=== PATIENT | female | born 1980 | race American Indian/Alaskan Native ===

== ENCOUNTER 2020-06-11 12:07 | Emergency (ER) | payer SELFPAY ==
[2020-06-11 12:14] VITALS: BP 127/76
--- NOTE | 2020-06-11 12:19 | Event Note ---
ED Screening Note Date of service: 06/11/20 Time: 12:17 ED Screening Note: 40-year-old female presents to the emergency room for 1 month of left lower quadrant pain that has worsened in the last 2 days. She denies any nausea no vomiting no constipation or diarrhea. Recent change from Metformin to insulin 70/30. Last menstrual period unaware she currently has Nexplanon. This initial assessment/diagnostic orders/clinical plan/treatment(s) is/are subject to change based on patients health status, clinical progression and re- assessment by fellow clinical providers in the ED. Further treatment and workup at subsequent clinical providers discretion. Patient/guardian urged not to elope from the ED as their condition may be serious if not clinically assessed and managed. Initial orders include:
[2020-06-11 13:02] LABS: Bacteria,Urine 1+ /HPF (Negative); Bilirubin,Urine NEG (Negative); Blood,Urine NEG (Negative); Color,Urine Yellow (Yellow); Mucus,Urine FEW /HPF; Protein,Urine <15 mg/dL mg/dL (Negative); Urobilinogen,Urine < 2.0 mg/dL (<2.0)
[2020-06-11 13:04] LABS: HCG Qualitative,Urine Negative (Negative)
[2020-06-11 13:46] LABS: Basophils % (Auto) 0.6 % (0.0-1.8); Eosinophils % (Auto) 0.8 % (0.0-4.3); Hematocrit 35.4 % (30.3-42.9); Hemoglobin 11.6 gm/dl (10.1-14.3); Lymphocytes # (Auto) 2.4 K/mm3 (1.2-5.4); Lymphocytes % (Auto) 39.9 % (13.4-35.0); Mean Corpuscular HGB Conc 33 % (30-34); Mean Corpuscular Volume 85 fl (79-97); Monocytes # (Auto) 0.4 K/mm3 (0.0-0.8); Monocytes % (Auto) 6.1 % (0.0-7.3); Platelet Count 325 K/mm3 (140-440); Red Blood Count 4.16 M/mm3 (3.65-5.03); Red Cell Distribution Width 13.4 % (13.2-15.2)
[2020-06-11 13:58] LABS: Alanine Aminotransferase 16 units/L (7-56); Albumin 3.7 g/dL (3.9-5); Blood Urea Nitrogen 9 mg/dL (7-17); Calcium 8.7 mg/dL (8.4-10.2); Hemolysis Index 9
[2020-06-11 14:33] LABS: BUN/Creatinine Ratio 13
[2020-06-11] MEDS ORDERED: KETOROLAC 30 MG/1 ML INJ IV ONE (16:05)
--- NOTE | 2020-06-11 16:09 | Emergency Department Report ---
ED Abdominal Pain HPI - General Chief Complaint: Abdominal Pain Stated Complaint: LT ABDOMINAL PAIN Time Seen by Provider: 06/11/20 15:34 Source: patient Mode of arrival: Ambulatory Limitations: No Limitations - History of Present Illness Initial Comments: 40 year old obese patient with pmhx of type II DM presents to ED c/o LLQ abd pain. Patient states her symptoms started gradually about 3 days ago and has been gradually getting worse. She describes it as someone sticking "hot coal" in her abdomen. She states it has been constant and radiates into her lower back. She is unable to give any modifying factors. She denies any vomiting, diarrhea, constipation, UTI symptoms or any abnormal vaginal symptoms. She states that her menstrual cycle is irregular due to the fact that she is on Nexplanon and therefore is unable to give the date of her last menstrual cycle. She denies any sexual activity for the past year. She denies any history of abdominal surgeries. She denies similar symptoms in the past. MD Complaint: abdominal pain -: Gradual, days(s) (3) Location: LLQ Radiation: back Migration to: no migration Severity scale (0 -10): 8 Quality: stabbing, burning Consistency: constant Improves With: nothing Worsens With: nothing Associated Symptoms: denies other symptoms - Related Data Home Medications Medication Instructions Recorded Confirmed Last Taken metFORMIN [Glucophage] 500 tab PO BID 10/21/13 11/21/15 11/20/15 Previous Rx's Medication Instructions Recorded Last Taken Type Amoxicillin/Potassium Clav 1 each PO BID #20 tablet 02/07/18 Unknown Rx [Augmentin 500-125 Tablet] Cipro/Dexameth 0.3/0.1% [Ciprodex 4 drops OT BID 5 Days #1 bottle 02/07/18 Unknown Rx [facility]] Ibuprofen [Motrin 800 MG tab] 800 mg PO Q8HR PRN #15 tablet 06/11/20 Unknown Rx Allergies Allergy/AdvReac Type Severity Reaction Status Date / Time No Known Allergies Allergy Unverified 10/21/13 09:32 ED Review of Systems ROS: Stated complaint: LT ABDOMINAL PAIN Other details as noted in HPI Comment: All other systems reviewed and negative Constitutional: denies: chills, fever Respiratory: denies: cough, shortness of breath, wheezing Cardiovascular: denies: chest pain, palpitations Gastrointestinal: abdominal pain. denies: nausea, vomiting, diarrhea, constipation, hematemesis, hematochezia Genitourinary: denies: urgency, dysuria, discharge Musculoskeletal: denies: back pain, joint swelling, arthralgia Skin: denies: rash, lesions Neurological: denies: headache, weakness, paresthesias Psychiatric: denies: anxiety, depression Hematological/Lymphatic: denies: easy bleeding, easy bruising ED Past Medical Hx - Past Medical History Previous Medical History?: Yes Hx Diabetes: Yes - Social History Smoking Status: Never Smoker Substance Use Type: None - Medications Home Medications: Home Medications Medication Instructions Recorded Confirmed Last Taken Type metFORMIN [Glucophage] 500 tab PO BID 10/21/13 11/21/15 11/20/15 History Amoxicillin/Potassium Clav 1 each PO BID #20 tablet 02/07/18 Unknown Rx [Augmentin 500-125 Tablet] Cipro/Dexameth 0.3/0.1% [Ciprodex 4 drops OT BID 5 Days #1 bottle 02/07/18 Unknown Rx [facility]] Ibuprofen [Motrin 800 MG tab] 800 mg PO Q8HR PRN #15 tablet 06/11/20 Unknown Rx ED Physical Exam - General Limitations: No Limitations General appearance: alert, in no apparent distress - Head Head exam: Present: atraumatic, normocephalic - Respiratory Respiratory exam: Absent: respiratory distress - Cardiovascular Cardiovascular Exam: Present: regular rate, normal rhythm, normal heart sounds - GI/Abdominal GI/Abdominal exam: Present: soft, tenderness (Mild ttp LLQ without guarding or rebound. ) - Back Exam Back exam: Present: normal inspection - Neurological Exam Neurological exam: Present: alert, oriented X3, CN II-XII intact - Psychiatric Psychiatric exam: Present: normal affect, normal mood - Skin Skin exam: Present: intact ED Course Vital Signs 06/11/20 12:11 Temperature 98.4 F Pulse Rate 100 H Respiratory 20 Rate Blood Pressure 127/76 O2 Sat by Pulse 98 Oximetry ED Medical Decision Making - Lab Data Result diagrams: 06/11/20 12:37 06/11/20 12:37 - Radiology Data Radiology results: report reviewed - Medical Decision Making Patient presented to the ER today complaint of left lower quadrant abdominal pain and no other symptoms. CT abdomen pelvis today shows nothing acute. Labs reviewed , blood sugar was elevated in the 200s and her sodium was mildly dec reased at 133 but otherwise remaining labs unremarkable. Exact cause of patient's symptoms at this time unclear. She is currently resting comfortably on her phone, does not appear to be in any acute distress, she is mentally stable, neurologically intact, well-appearing, well-hydrated and nontoxic- appearing with stable vital signs. Discussed CT results as well as lab results with patient. Recommend that she follow-up with her primary care doctor and [facility] for further evaluation. But if her symptoms worsens then she needs to return to the ER. Critical care attestation.: If time is entered above; I have spent that time in minutes in the direct care of this critically ill patient, excluding procedure time. ED Disposition Clinical Impression: Left lower quadrant abdominal pain Disposition: TO HOME OR SELFCARE Is pt being admited?: No Does the pt Need Aspirin: No Condition: Stable Instructions: Abdominal Pain (ED), Abdominal Pain, Adult, [id number] Additional Instructions: I recommend take the medication as prescribed to help with pain. Follow up with PCP and obgyn listed on your d/c instructions for further eval especially if pain persist. Return to ED if symptoms changes or worsens. Prescriptions: Ibuprofen [Motrin 800 MG tab] 800 mg PO Q8HR PRN #15 tablet PRN Reason: Pain, Moderate (4-6) Referrals: BRYAN DORSEY MD [Staff Physician] - 3-5 Days [facility] [Provider Group] - 3-5 Days Time of Disposition: 18:22
--- NOTE | 2020-06-11 17:50 | Cat Scan Report ---
CT abdomen pelvis w con INDICATION: LLQ ABD PAIN. TECHNIQUE: All CT scans at this location are performed using CT dose reduction for ALARA by means of automated e xposure control. COMPARISON: 02/03/2013 FINDINGS: Lung bases are clear of acute disease. Liver, gallbladder, spleen, pancreas, kidneys and adrenals are negative. Abdominal aorta is normal in size. No adenopathy. Pelvis Normal appendix. Uterus and left ovary appear grossly negative. Right ovary cannot be specifically id entified. No free fluid or inflammation. Urinary bladder is negative. No skeletal lesions. IMPRESSION: 1. No significant abnormalities. I do not see the cause of the patient's left-sided abdominal pain. Signer Name: Andrew Mcclellan MD Signed: 06/11/2020 5:46 PM Workstation Name: [id number]
== END 2020-06-11 18:32 | disposition home or self-care (01) ==
LOC: ED 12:07
DX: R10.32 Left lower quadrant pain (principal)
CPT/HCPCS: 36415; 74177; 80053; 81001; 81025; 82962; 85025; 96374; 99284; J1885; Q9967